=== PATIENT | female | born 1960 | race Two or more races ===

== ENCOUNTER 2017-09-15 13:35 | Emergency (ER) | payer SELFPAY ==
[~2017-09-15] VITALS: Ht 167.6 cm; Wt 61.2 kg
[2017-09-15 16:56] VITALS: BP 114/73
== END 2017-09-15 17:43 | disposition home or self-care (01) ==
LOC: EDBD 13:35 → ER 13:35
DX: S40.011A Contusion of right shoulder, initial encounter (principal); M62.838 Other muscle spasm; V43.62XA Car passenger injured in collision with other type car in traffic accident, initial encounter; Y93.89 Activity, other specified; Y92.89 Other specified places as the place of occurrence of the external cause; Y99.8 Other external cause status
CPT/HCPCS: 71046; 72125; 73030; 93005